=== PATIENT | male | born 1970 | race Caucasian/White ===

== ENCOUNTER 2021-09-18 10:46 | Emergency (ER) | payer BC ==
[~2021-09-18] VITALS: Ht 180.3 cm; Wt 115.0 kg
[2021-09-18 11:05] VITALS: BP 130/85
[2021-09-18] MEDS ORDERED: GUAI120L55 PO (11:27)
== END 2021-09-18 11:43 | disposition home or self-care (01) ==
LOC: ER 10:46
DX: U07.1 COVID-19 (principal); Z87.891 Personal history of nicotine dependence; Z79.899 Other long term (current) drug therapy
CPT/HCPCS: 99282

== ENCOUNTER → 2024-04-16 | Outpatient (CLI) | payer OTHER, MEDICAID ==
[~2024-04-16] MED LIST: AMIT50TA15 PO; ASPIRIN PO; ATOR40TA72; FLO0.4C; GABA600T13 PO; LEVE500T PO; LEVE500T99 PO; PROP40TA72 PO
== END | disposition home or self-care (01) ==
LOC: CARD DIAG 10:35
PROVIDERS: ATTEND Family Medicine
DX: I08.0 Rheumatic disorders of both mitral and aortic valves (principal); I63.9 Cerebral infarction, unspecified
CPT/HCPCS: 93306